=== PATIENT | female | born 2005 | race Caucasian/White ===

== ENCOUNTER 2025-01-19 14:43 | Emergency (ER) | payer BC, OTHER ==
[~2025-01-19] VITALS: Ht 157.5 cm; Wt 82.1 kg
[2025-01-19 14:47] VITALS: TEMP 99.4
[2025-01-19] MEDS ORDERED: LEXA1TAB2 PO (15:09)
[2025-01-19] MEDS ORDERED: AMOX875T2 PO (17:30)
[2025-01-19 17:36] VITALS: BP 123/69; O2SAT 99
== END 2025-01-19 17:37 | disposition home or self-care (01) ==
LOC: M ED 14:43
DX: S41.132A Puncture wound without foreign body of left upper arm, initial encounter (principal); S71.132A Puncture wound without foreign body, left thigh, initial encounter; W54.0XXA Bitten by dog, initial encounter; Y92.007 Garden or yard of unspecified non-institutional (private) residence as the place of occurrence of the external cause; Y93.89 Activity, other specified; Y99.9 Unspecified external cause status; Z79.2 Long term (current) use of antibiotics; Z79.899 Other long term (current) drug therapy

== ENCOUNTER → 2025-04-03 | Outpatient (CLI) | payer BC ==
[~2025-04-03] MED LIST: AMOX875T2 PO; LEXA1TAB2 PO; ONDA-282 PO; PERC5TAB12 PO
== END ==
LOC: M LAB 11:25
PROVIDERS: ATTEND Physician Assistant Medical
DX: Z34.91 Encounter for supervision of normal pregnancy, unspecified, first trimester (principal); Z3A.00 Weeks of gestation of pregnancy not specified

== ENCOUNTER → 2025-07-01 | Outpatient (CLI) | payer BC, OTHER ==
[2025-07-01 13:04] LABS: PLATELET COUNT, AUTOMATED 276 10^3/uL (150-450)
[2025-07-01 13:39] LABS: HIV 1&2 SCREEN NEGATIVE (NEGATIVE)
[2025-07-01 13:47] LABS: HEPATITIS C VIRUS ABY INDEX < 0.02 INDEX (<0.8)
[2025-07-01 14:50] LABS: Trichomonas vaginalis (AMP) NOT DETECTED (NEGATIVE)
[2025-07-01 15:14] LABS: GC DNA AMPLIFICATION NEGATIVE (NEGATIVE)
== END ==
LOC: M PLALAB 09:03
PROVIDERS: ATTEND Nurse Practitioner Family
DX: Z34.81 Encounter for supervision of other normal pregnancy, first trimester (principal)

== ENCOUNTER → 2025-07-12 | Outpatient (REF) | payer OTHER | LOC: M PLALAB 09:53 | PROVIDERS: ATTEND Nurse Practitioner Family | DX: N90.9 Noninflammatory disorder of vulva and perineum, unspecified (principal) ==

== ENCOUNTER → 2025-07-29 | Outpatient (REF) | payer OTHER ==
[2025-07-29 14:38] LABS: Trichomonas vaginalis (AMP) NOT DETECTED (NEGATIVE)
[2025-07-29 15:02] LABS: GC DNA AMPLIFICATION NEGATIVE (NEGATIVE)
== END ==
LOC: M SFHCWAGY 13:04
PROVIDERS: ATTEND Advanced Practice Midwife
DX: Z34.82 Encounter for supervision of other normal pregnancy, second trimester (principal)

== ENCOUNTER 2025-08-09 20:59 | Outpatient (CLI) | payer OTHER | END 2025-08-10 01:50 | disposition home or self-care (01) | LOC: M LDO 20:59 | PROVIDERS: ATTEND Advanced Practice Midwife | DX: O26.892 Other specified pregnancy related conditions, second trimester (principal); O99.012 Anemia complicating pregnancy, second trimester; R10.21 Pelvic and perineal pain right side; D50.9 Iron deficiency anemia, unspecified; Z3A.15 15 weeks gestation of pregnancy | CPT/HCPCS: 59025; 76817; G0463 ==

== ENCOUNTER → 2025-09-02 | Outpatient (CLI) | payer OTHER | LOC: M WHC 13:03 | PROVIDERS: ATTEND Advanced Practice Midwife | DX: Z36.89 Encounter for other specified antenatal screening (principal) ==